=== PATIENT | female | born 1970 | race Caucasian/White ===

== ENCOUNTER → 2019-09-04 17:31 | Outpatient (CLI) | payer BC ==
[2019-09-06 10:11] LABS: ANA REFLEX - DIRECT Negative (Negative)
== END | disposition home or self-care (01) ==
LOC: D.LABREF 17:31
PROVIDERS: ATTEND Internal Medicine Pulmonary Disease
DX: R93.89 Abnormal findings on diagnostic imaging of other specified body structures (principal)